=== PATIENT | male | born 1985 | race American Indian/Alaskan Native ===

== ENCOUNTER 2018-04-17 15:10 | Emergency (ER) | payer SELFPAY ==
[2018-04-17 15:20] VITALS: BP 109/63
[2018-04-17] MEDS ORDERED: NACL 0.9% 1000 ML 1,000 ML IV ONE (15:21)
[2018-04-17 16:00] LABS: Bilirubin,Urine NEG (Negative); Blood,Urine NEG (Negative); Color,Urine Yellow (Yellow); Mucus,Urine FEW /HPF; Protein,Urine <15 mg/dL mg/dL (Negative)
[2018-04-17 16:08] LABS: WBC,Urine < 1.0 /HPF (0.0-6.0)
== END 2018-04-17 16:56 | disposition left against medical advice (07) ==
LOC: ED 15:10
DX: R10.9 Unspecified abdominal pain (principal); Z53.21 Procedure and treatment not carried out due to patient leaving prior to being seen by health care provider
CPT/HCPCS: 81001

== ENCOUNTER 2020-05-21 10:44 | Emergency (ER) | payer SELFPAY ==
--- NOTE | 2020-05-21 10:48 | Event Note ---
ED Screening Note Date of service: 05/21/20 Time: 10:47 ED Screening Note: Patient complains of sudden onset of shortness of breath x25 minutes States history of fluid in lungs requiring drainage Patient is a smoker This initial assessment/diagnostic orders/clinical plan/treatment(s) is/are mcneal bject to change based on patients health status, clinical progression and re- assessment by fellow clinical providers in the ED. Further treatment and workup at subsequent clinical providers discretion. Patient/guardian urged not to elope from the ED as their condition may be serious if not clinically assessed and managed. Initial orders include: Chest x-ray EKG Labs
[2020-05-21 10:49] VITALS: BP 120/64
[2020-05-21] MEDS ORDERED: IPRATROPIUM/ALBUTEROL SULFATE 3 ML AMPUL.NEB IH ONE (11:21)
--- NOTE | 2020-05-21 11:23 | XRay Report ---
CHEST 2 VIEWS INDICATION / CLINICAL INFORMATION: Shortness of breath and substernal chest pain.. COMPARISON: None available. FINDINGS: SUPPORT DEVICES: None. HEART / MEDIASTINUM: The heart size and pulmonary vasculature are normal. The aorta is normal in [place]. LUNGS / PLEURA: No significant pulmonary or pleural abnormality. No pneumothorax. ADDITIONAL FINDINGS: No significant additional findings. IMPRESSION: No acute findings. Signer Name: Antoni Hall MD Signed: 05/21/2020 11:19 AM Workstation Name: [id number]
--- NOTE | 2020-05-21 11:24 | Emergency Department Report ---
HPI - General Chief Complaint: Dyspnea/Respdistress Time Seen by Provider: 05/21/20 10:46 - HPI HPI: Room 26 The patient is a 35-year-old male present with a chief complaint of shortness of breath. The patient states he got into a stressful conversation with his got upset. Patient states he then developed shortness of breath and pinching discomfort whenever he exhaled. Patient otherwise denies chest pain, cough or fever. Patient denies pleurisy nausea or vomiting. ED Past Medical Hx - Past Medical History Previous Medical History?: No Additional medical history: PNEUMONIA (patient states he was told he had a "hole" in his lungs) - Surgical History Past Surgical History?: No - Family History Family history: no significant - Social History Smoking Status: Current Every Day Smoker (1/2 pack/day) Substance Use Type: Alcohol (Occasional), Marijuana - Medications Home Medications: Home Medications Medication Instructions Recorded Confirmed Last Taken Type Cyclobenzaprine [Flexeril] 10 mg PO TID PRN #14 tablet 09/07/13 Unknown Rx HYDROcodone/APAP 5-325 [Gering 1 each PO Q6HR PRN #10 tablet 09/07/13 Unknown Rx 5-325 mg TAB] Ibuprofen [Motrin] 800 mg PO TID PRN #20 tablet 09/07/13 Unknown Rx Albuterol Mdi (or & Nicu Only) 2 puff IH QID PRN #8.5 gram 05/21/20 Unknown Rx [ProAir HFA Inhaler] hydrOXYzine HCL [Atarax] 25 mg PO Q6HR PRN #10 tablet 05/21/20 Unknown Rx ED Review of Systems ROS: Stated complaint: DIFFICULTY BREATHING Other details as noted in HPI Constitutional: denies: fever Eyes: denies: eye pain ENT: denies: throat pain Respiratory: shortness of breath. denies: cough Cardiovascular: denies: chest pain Endocrine: no symptoms reported Gastrointestinal: denies: nausea, vomiting Genitourinary: denies: dysuria Musculoskeletal: denies: back pain Neurological: denies: headache Physical Exam - Physical Exam Vital Signs: Vital Signs 05/21/20 10:45 Temperature 97.6 F Pulse Rate 62 Respiratory 22 Rate Blood Pressure 120/64 O2 Sat by Pulse 100 Oximetry Physical Exam: GENERAL: The patient is well-developed well-nourished male lying on stretcher not appearing to be in acute distress. [] HEENT: Normocephalic. Atraumatic. Extraocular motions are intact. Patient has moist mucous membranes. NECK: Supple. Trachea midline CHEST/LUNGS: Clear to auscultation. There is no respiratory distress noted. HEART/CARDIOVASCULAR: Regular. There is no tachycardia. There is no gallop rub or murmur. ABDOMEN: Abdomen is soft, nontender. Patient has normal bowel sounds. There is no abdominal distention. SKIN: There is no rash. There is no edema. There is no diaphoresis. NEURO: The patient is awake, alert, and oriented. The patient is cooperative. The patient has normal speech MUSCULOSKELETAL: There is no evidence of acute injury. ED Course Vital Signs 05/21/20 10:45 Temperature 97.6 F Pulse Rate 62 Respiratory 22 Rate Blood Pressure 120/64 O2 Sat by Pulse 100 Oximetry - Reevaluation(s) Reevaluation #1: 05/21/20 12:41 Patient states he feels much improved after [facility] ED Medical Decision Making - Lab Data Result diagrams: 05/21/20 10:57 05/21/20 10:57 Laboratory Tests 05/21/20 05/21/20 05/21/20 10:57 10:57 12:00 WBC 4.9 RBC 4.71 Hgb 15.1 Hct 42.9 MCV 91 MCH 32 MCHC 35 H RDW 12.7 L Plt Count 215 Lymph % (Auto) 37.5 H [place] % (Auto) 7.3 Eos % (Auto) 2.5 Baso % (Auto) 1.0 Lymph # (Auto) 1.8 [place] # (Auto) 0.4 Eos # (Auto) 0.1 Baso # (Auto) 0.0 Seg Neutrophils % 51.7 Seg Neutrophils # 2.5 D-Dimer < 135 Sodium 140 Potassium 3.8 Chloride 103.3 Carbon Dioxide 27 Anion Gap 14 BUN 8 L Creatinine 0.9 Estimated GFR > 60 BUN/Creatinine Ratio 9 Glucose 93 Calcium 9.8 Total Bilirubin 0.30 AST 15 ALT 13 Alkaline Phosphatase 71 Total Creatine Kinase CK-MB (CK-2) CK-MB (CK-2) Rel Index Troponin T < 0.010 NT-Pro-B Natriuret Pep Total Protein 6.7 Albumin 4.4 Albumin/Globulin Ratio 1.9 05/21/20 12:00 WBC RBC Hgb Hct MCV MCH MCHC RDW Plt Count Lymph % (Auto) [place] % (Auto) Eos % (Auto) Baso % (Auto) Lymph # (Auto) [place] # (Auto) Eos # (Auto) Baso # (Auto) Seg Neutrophils % Seg Neutrophils # D-Dimer Sodium Potassium Chloride Carbon Dioxide Anion Gap BUN Creatinine Estimated GFR BUN/Creatinine Ratio Glucose Calcium Total Bilirubin AST ALT Alkaline Phosphatase Total Creatine Kinase 105 CK-MB (CK-2) 1.2 CK-MB (CK-2) Rel Index 1.1 Troponin T NT-Pro-B Natriuret Pep 42.75 Total Protein Albumin Albumin/Globulin Ratio - EKG Data -: EKG Interpreted by Me EKG shows normal: sinus rhythm Rate: normal - EKG Data When compared to previous EKG there are: previous EKG unavailable Interpretation: normal EKG - Radiology Data Radiology results: report reviewed (Chest x-ray), image reviewed (Chest x-ray) interpreted by me: Chest x-ray-no focal infiltrates, no pneumothorax. No foreign body seen Chest x-ray (read by radiologist)-no acute finding - Differential Diagnosis Anxiety, bronchitis, pneumothorax, PE Critical care attestation.: If time is entered above; I have spent that time in minutes in the direct care of this critically ill patient, excluding procedure time. ED Disposition Clinical Impression: Anxiety, Shortness of breath Disposition: DC- TO HOME OR SELFCARE Is pt being admited?: No Does the pt Need Aspirin: No Condition: Stable Instructions: Shortness of Breath, Adult, [id number] Additional Instructions: Return to the emergency department should you develop worsening symptoms, inability to tolerate food or liquids, high fever or any other concerns Prescriptions: hydrOXYzine HCL [Atarax] 25 mg PO Q6HR PRN #10 tablet PRN Reason: Itching Albuterol Mdi (or & Nicu Only) [ProAir HFA Inhaler] 2 puff IH QID PRN #8.5 gram PRN Reason: Shortness Of Breath Referrals: PRIMARY CARE, [Primary Care Provider] - 3-5 Days [facility] [Provider Group] - 3-5 Days Time of Disposition: 12:41
[2020-05-21 11:35] LABS: Eosinophils # (Auto) 0.1 K/mm3 (0.0-0.4); Eosinophils % (Auto) 2.5 % (0.0-4.3); Hematocrit 42.9 % (35.5-45.6); Hemoglobin 15.1 gm/dl (11.8-15.2); Lymphocytes # (Auto) 1.8 K/mm3 (1.2-5.4); Lymphocytes % (Auto) 37.5 % (13.4-35.0); Mean Corpuscular HGB Conc 35 % (32-34); Mean Corpuscular Volume 91 fl (84-94); Monocytes # (Auto) 0.4 K/mm3 (0.0-0.8); Monocytes % (Auto) 7.3 % (0.0-7.3); Platelet Count 215 K/mm3 (140-440); Red Blood Count 4.71 M/mm3 (3.65-5.03); Red Cell Distribution Width 12.7 % (13.2-15.2)
[2020-05-21 11:39] LABS: Alanine Aminotransferase 13 units/L (7-56); Albumin 4.4 g/dL (3.9-5); BUN/Creatinine Ratio 9; Blood Urea Nitrogen 8 mg/dL (9-20); Calcium 9.8 mg/dL (8.4-10.2); Hemolysis Index 7
[2020-05-21 12:30] LABS: Creatine Kinase MB 1.2 ng/mL (0.0-4.0)
== END 2020-05-21 13:20 | disposition home or self-care (01) ==
LOC: ED 10:44
DX: R06.02 Shortness of breath (principal); F41.9 Anxiety disorder, unspecified; F17.200 Nicotine dependence, unspecified, uncomplicated; F12.10 Cannabis abuse, uncomplicated
CPT/HCPCS: 36415; 71046; 80053; 82550; 82553; 83880; 84484; 85025; 85379; 93005; 94640; 94644; 99284